=== PATIENT | male | born 1950 ===

== ENCOUNTER 2017-02-01 17:18 | Emergency (ER) | payer OTHER ==
[2017-02-01] MEDS ORDERED: Sodium Chloride 0.9% 10 ML Syringe FLUSH PRN (17:27)
[2017-02-01 17:31] VITALS: BP 128/70
[2017-02-01] MEDS ORDERED: Ondansetron 4 MG/2 ML SDV IVPUSH ONE (17:34)
--- NOTE | 2017-02-01 17:35 | EDM.PDOC ---
ED HPI GENERAL MEDICAL PROBLEM - General Chief Complaint: Neuro Symptoms/Deficits Stated Complaint: LETHA LUZ Time Seen by Provider: 02/01/17 17:26 Source of Information: Reports: Patient, Family, RN Notes Reviewed, Other ( Pacer nurse) - History of Present Illness INITIAL COMMENTS - FREE TEXT/NARRATIVE: 66-year-old male comes in with symptoms of acute stroke. He was last known to be normal at around 16:30 this afternoon, about 50 minutes prior to arrival. He had been outside doing some work on his pickup truck and then after coming into the home around 4:30 he is reported to have slipped or fallen while getting into a chair. He and his are both under the care of the [employer], a home assistance program. His called the [facility] nurse who responded immediately. She found him to have quite severe speech difficulty, left facial droop paralysis of his left upper and lower extremities. EMS was called to the scene who promptly transferred him to our facility. He arrived at about 17:20. Stroke alert was called upon arrival. I did see patient upon arrival. Upon assessment he was found to have continued speech difficulty but improved from what was reported at time of onset of symptoms. He now was able to answer questions, his speech was slurred but understandable. He continued to have complete left upper extremity paralysis. Upon plantar stimulation he showed good withdrawal motion and strength of the left lower extremity. According to the pace nurse this was a marketed improvement from when she had arrived at the home about one half hour prior. He does have history of hypertension. He is on medication for that. He does have history of chronic atrial fibrillation, on Coumadin and history of renal insufficiency. He is reported to be full CODE STATUS. He is on diltiazem and metoprolol in addition to other listed medications - Related Data Allergies Allergy/AdvReac Type Severity Reaction Status Date / Time tramadol Allergy Other Verified 02/01/17 17:38 Home Meds: Home Meds Allopurinol [Zyloprim] 100 mg PO DAILY 11/11/14 [History] Diltiazem HCl [Cartia Xt] 180 mg PO DAILY 11/11/14 [History] Divalproex Sodium [Divalproex Sodium ER] 500 mg PO DAILY 11/11/14 [History] Metoprolol Succinate [Toprol XL] 25 mg PO DAILY 11/11/14 [History] Warfarin Sodium [Jantoven] 2 mg PO WE 11/11/14 [History] Aspirin 1 tab PO DAILY 05/13/16 [History] Calcium Carbonate [Calcium] 1,000 mg PO DAILY 05/13/16 [History] Acetaminophen [Tylenol] 650 mg PO Q4H PRN 02/01/17 [History] Divalproex Sodium [Divalproex Sodium ER] 250 mg PO BEDTIME 02/01/17 [History] Omeprazole 20 mg PO DAILY 02/01/17 [History] Polyethylene Glycol 3350 [MiraLAX] 17 gm PO DAILY PRN 02/01/17 [History] Polyvinyl Alcohol/Povidone [Artificial Tears Drops] 1 drop EYEBOTH DAILY PRN 02/07 [History] Potassium Chloride [Klor-Con] 20 meq PO DAILY 02/01/17 [History] Warfarin [Coumadin] 1 mg PO SUMOTUTHFRSA 02/01/17 [History] Social & Family History - Tobacco Use Smoking Status *Q: Unknown Ever Smoked Second Hand Smoke Exposure: No ED ROS GENERAL - Review of Systems Review Of Systems: See Below Constitutional: Denies: Fever, Chills HEENT: Denies: Throat Pain, Vision Change Respiratory: Denies: Shortness of Breath, Pleuritic Chest Pain Cardiovascular: Denies: Chest Pain GI/Abdominal: Denies: Abdominal Pain, Nausea, Vomiting Musculoskeletal: Denies: Neck Pain, Back Pain Skin: Reports: No Symptoms Neurological: Reports: Trouble Speaking (Improving from time of onset of symptoms about 45 minutes prior to arrival), Weakness (Complete paralysis of the left upper extremity, paralysis of left lower extremity resolving) ED EXAM, NEURO - Physical Exam Exam: See Below General Appearance: Alert, Anxious Eye Exam: Bilateral Eye: PERRL Throat/Mouth: Normal Oropharynx Head Exam: Atraumatic. No: Facial Swelling Neck: Supple, Full Range of Motion Respiratory/Chest: No Respiratory Distress, Lungs Clear, Normal Breath Sounds Cardiovascular: Bradycardia GI/Abdominal: Soft, Non-Tender. No: Guarding Neurological: Alert, Other (Upon arrival complete paralysis left upper extremity , good strength and sensation left lower extremity, moderate left facial droop, speech is mildly slurred but understandable) EKG INTERPRETATION EKG Date: 02/01/17 Rhythm: Other (Junctional bradycardia) [place]: Normal QRS: Normal ST-T: Normal Course - Vital Signs Last Recorded V/S: Last Vital Signs Temp 97.0 F 02/01/17 17:28 Pulse 39 L 02/01/17 17:28 Resp 19 02/01/17 17:28 BP 128/70 02/01/17 17:28 Pulse Ox 98 02/01/17 17:28 - Orders/Labs/Meds Orders: Active Orders 24 hr Category Date Time Status EKG 12 Lead [EKG Documentation Completion] [RC] STAT Care 02/01/17 17:27 Active Peripheral IV Care [RC] . DIRECTED Care 02/01/17 17:27 Active Peripheral IV Insertion Adult [OM.PC] Stat Oth 02/01/17 17:27 Ordered Labs: Laboratory Tests 02/01/17 02/01/17 02/01/17 Range/Units 17:30 17:30 17:30 WBC 8.47 (4.23-9.07) K/mm3 RBC 4.38 L (4.63-6.08) M/mm3 Hgb 15.0 (13.7-17.5) gm/L Hct 44.7 (40.1-51.0) % MCV 102.1 H (79.0-92.2) fl MCH 34.2 H (25.7-32.2) pg MCHC 33.6 (32.2-35.5) g/dl RDW Std Deviation 51.3 H (35.1-43.9) fL Plt Count 177 (163-337) K/mm3 MPV 9.8 (9.4-12.3) fl Neut % (Auto) 47.3 (34.0-67.9) % Lymph % (Auto) 36.1 (21.8-53.1) % [place] % (Auto) 13.9 H (5.3-12.2) % Eos % (Auto) 2.0 (0.8-7.0) Baso % (Auto) 0.6 (0.1-1.2) % Neut # (Auto) 4.00 (1.78-5.38) K/mm3 Lymph # (Auto) 3.06 (1.32-3.57) K/mm3 [place] # (Auto) 1.18 H (0.30-0.82) K/mm3 Eos # (Auto) 0.17 (0.04-0.54) K/mm3 Baso # (Auto) 0.05 (0.01-0.08) K/mm3 PT 17.2 H (8.0-13.0) SECONDS INR 1.54 APTT 32 (22-36) SECONDS Sodium 135 L (136-145) mEq/L Potassium 5.2 H (3.5-5.1) mEq/L Chloride 103 (98-107) mEq/L Carbon Dioxide 23 (21-32) mEq/L Anion Gap 14.2 (5-15) BUN 14 (7-18) mg/dL Creatinine 1.9 H (0.7-1.3) mg/dL Est Cr Clr Drug Dosing 32.82 mL/min Estimated GFR (MDRD) 36 (>60) mL/min BUN/Creatinine Ratio 7.4 L (14-18) Glucose 97 (80-115) mg/dL Calcium 9.2 (8.5-10.1) mg/dL Total Bilirubin 1.8 H (0.2-1.0) mg/dL AST 45 H (15-37) U/L ALT 24 (16-63) U/L Alkaline Phosphatase 73 (46-116) U/L Total Protein 7.2 (6.4-8.2) g/dl Albumin 3.2 L (3.4-5.0) g/dl Globulin 4.0 gm/dL Albumin/Globulin Ratio 0.8 L (1-2) Meds: Medications Discontinued Medications Generic Name Dose Route Start Last Admin Trade Name Freq PRN Reason Stop Dose Admin Ondansetron HCl 4 mg 02/01/17 17:34 02/01/17 18:01 Zofran IVPUSH 02/01/17 17:35 4 mg ONETIME ONE Administration Sodium Chloride 10 ml 02/01/17 17:27 02/01/17 18:02 Saline Flush FLUSH 10 ml ASDIRECTED PRN Administration Keep Vein Open - Re-Assessments/Exams Free Text/Narrative Re-Assessment/Exam: 02/01/17 18:59. As noted this was called as stroke alert upon a patient arrival. With this being late Friday afternoon durability technician was not in-house but called immediately upon patient arrival. Head CT did not show any sign for acute hemorrhage. I did visit with the P nurse, patient and patient's family through the pace nurse while awaiting Radiologist report regarding disposition. Family is requesting transfer to [facility]. Of note upon reevaluation after coming back from CT he was than regaining motor function of his left hand and arm. He was able to squeeze my finger with at least 50% grasp and able to hold his left hand and arm above his body compared to complete flaccid paralysis on arrival. Also of note he is on Coumadin for chronic atrial fib with an INR yesterday of around 1.5. I did discuss with Dr. Anne, Neurologist environmental engineering intern [facility] and he agrees that with patient on Coumadin and fairly rapidly resolving paralysis of the left lower extremity and now also marked improvement left upper extremity that thrombolytics present more risk than potential benefit. The one call nurse did visit with Dr. Terrell Holley, ED physician who does accept patient in transfer. The [employer] flight crew had been notified at time of patient arrival and are now in route to [facility]. Of note INR came back 1.54. Potassium came back at 5.2. With that flight crew did discuss option of treatment with calcium chloride or gluconate, 1 amp sodium bicarbonate and glucose with insulin. They notified us that even as he was loaded into the helicopter that heart rate had improved from around 42 up into the 60's. Blood pressure continued to run in the 120 systolic range while here in the ED. Departure - Departure Time of Disposition: 18:30 Disposition: DC/Tfer to Acute Hospital 02 Condition: Serious Clinical Impression: Acute ischemic stroke, Renal insufficiency, Hyperkalemia, Bradycardia - Discharge Information Referrals: Tremaine Keith MD [Primary Care Provider] - Forms: ED Department Discharge - My Orders Last 24 Hours: My Active Orders 02/01/17 17:27 EKG 12 Lead [EKG Documentation Completion] [RC] STAT Peripheral IV Care [RC] . DIRECTED Peripheral IV Insertion Adult [OM.PC] Stat - Assessment/Plan Last 24 Hours: My Active Orders 02/01/17 17:27 EKG 12 Lead [EKG Documentation Completion] [RC] STAT Peripheral IV Care [RC] . DIRECTED Peripheral IV Insertion Adult [OM.PC] Stat
--- NOTE | 2017-02-01 18:02 | CT ---
Head CT Technique: Multiple axial sections through the brain were obtained. Intravenous contrast was not utilized. Comparison: No previous intracranial imaging is available. Findings: Ventricles along with basal cisterns and sulci over convexities are moderately prominent. Atherosclerotic calcification is seen within the carotid siphon. Minimal diminished density is noted within portions of the periventricular and subcortical white matter which is compatible with small vessel ischemic demyelination change. Similar findings are seen within portions of the basal ganglia. No other abnormal parenchymal densities are seen. No evidence of intracranial hemorrhage. No midline shift or mass effect is seen. Bone window settings were reviewed which shows no acute calvarial abnormality. Visualized sinuses shows a retention cyst within the left maxillary sinus measuring about 1.3 cm. Minimal areas of mucosal thickening are noted within the ethmoid sinuses which is felt to be incidental. No acute calvarial abnormality is seen. Impression: 1. Senescent change as noted above. Sinus findings which are felt to be incidental. 2. No acute intracranial abnormality is identified on noncontrast head CT exam. Diagnostic code #2
== END 2017-02-01 18:50 ==
LOC: JD.ED 17:18
DX: I63.9 Cerebral infarction, unspecified (principal); N28.9 Disorder of kidney and ureter, unspecified; E87.5 Hyperkalemia; R00.1 Bradycardia, unspecified; Z88.5 Allergy status to narcotic agent; Z79.899 Other long term (current) drug therapy; Z79.01 Long term (current) use of anticoagulants
CPT/HCPCS: 36415; 70450; 80053; 85025; 85610; 85730; 93005; 96374; 99285; J2405; J7050; 93010